=== PATIENT | male | born 1960 | race Caucasian/White ===

== ENCOUNTER 2017-04-30 07:45 | Emergency (ER) | payer OTHER ==
[~2017-04-30] VITALS: Ht 182.9 cm; Wt 106.2 kg
[2017-04-30 08:46] LABS: EOSINOPHIL (%) 0.6 % (0-5); EOSINOPHIL COUNT 0.1 K/uL (0-0.3); HEMATOCRIT 52.4 % (38.0-50.0); IMMATURE GRANULOCYTE (%) 0.5 % (0.0-0.7); IMMATURE GRANULOCYTE COUNT 0.1 K/uL; INSTRUMENT ABS NEUTROPHIL CT 6.4 K/uL; LYMPHOCYTE COUNT 2.6 K/uL (1.0-2.8); MCH 30.4 PG (29.0-34.0); MCHC 35.1 G/DL (30.0-36.0); MCV 86.5 FL (86-99); MEAN PLAT.VOLUME 10.1 uM^3 (9.0-12.4); MONOCYTE (%) 7.9 % (3-12); MONOCYTE COUNT 0.8 K/uL (0-0.8); NEUTROPHIL (%) 64.7 % (45-76); NEUTROPHIL COUNT 6.4 K/uL (1.8-6.4); PLATELET COUNT 180 K/uL (156-360); RBC DIS.WIDTH-SD 35.3 % (39-53); RED BLOOD COUNT 6.06 M/uL (4.00-5.50); WHITE BLOOD COUNT 9.9 K/uL (4.1-10.2)
[2017-04-30 09:18] LABS: CHLORIDE 95 mEq/L (99-109); POTASSIUM 3.9 mEq/L (3.7-5.4); SODIUM 129 mEq/L (136-147)
[2017-04-30 09:21] LABS: GLUCOSE 264 mg/dL (70-99)
[2017-04-30 09:22] LABS: ANION GAP 11 MEQ/L (2-14)
[2017-04-30 09:23] LABS: TOTAL BILIRUBIN 1.6 mg/dL (0.0-1.0)
[2017-04-30 09:24] LABS: ALKALINE PHOSPHATASE 77 IU/L (3-129); GFR ESTIMATE (CALCULATED) > 59 mL/min/
[2017-04-30 09:25] LABS: UREA NITROGEN (BUN) 22 mg/dL (9-23)
[2017-04-30 09:28] LABS: LIPASE 11 U/L (1.0-51.0)
[2017-04-30 11:44] LABS: ADD MIUA? YES; BILIRUBIN NEGATIVE; BLOOD NEGATIVE; COLOR YELLOW ((YELLOW)); GLUCOSE (STRIP) >=500; KETONES 80; LEUKOCYTES NEGATIVE; NITRITE NEGATIVE; PROTEIN (STRIP) 100; UROBILINOGEN 0.2 MG/DL (0.2-1.0)
[2017-04-30 11:48] LABS: BACTERIA NONE SEEN /HPF; EPITHELIAL CELLS RARE /HPF; MUCUS TRACE /LPF; RED BLOOD CELLS 0-5 /HPF (0-5); WHITE BLOOD CELLS 0-5 /HPF (0-5)
[2017-04-30 12:47] LABS: SPECIFIC GRAVITY 1.075 (1.000-1.030)
[2017-04-30] MEDS ORDERED: ZOFRAN ODT4 MG PO (13:28)
[2017-04-30] MEDS ORDERED: TYLENOL WITH C1 EACH PO (13:28)
[2017-04-30 14:27] VITALS: BP 158/88
== END 2017-04-30 14:25 | disposition home or self-care (01) ==
LOC: EME 07:45
PROVIDERS: Emergency Medicine
DX: K57.30 Diverticulosis of large intestine without perforation or abscess without bleeding (principal); R11.2 Nausea with vomiting, unspecified; R10.9 Unspecified abdominal pain; E87.1 Hypo-osmolality and hyponatremia
CPT/HCPCS: 74177; 80053; 81003; 83690; 85025; 99281; 99285; J2270; J2405; J7030